=== PATIENT | male | born 1970 | race Caucasian/White ===

== ENCOUNTER → 2017-10-18 | Outpatient (CLI) | payer MEDICAID ==
[~2017-10-18] MED LIST: FLUT16SP19 NS
[2017-10-18 09:42] LABS: PLATELET COUNT, AUTOMATED 248 K/uL (150-450)
[2017-10-18 09:55] LABS: LDL CHOLESTEROL 91 mg/dl
== END ==
LOC: LAB 09:23
PROVIDERS: ATTEND Internal Medicine
DX: G47.9 Sleep disorder, unspecified (principal); R42 Dizziness and giddiness; R53.83 Other fatigue; R51 Headache; I10 Essential (primary) hypertension
CPT/HCPCS: 36415; 81001; 82040; 82247; 82310; 82374; 82435; 82465; 82565; 82947; 83718; 84075; 84132; 84155; 84295; 84443; 84450; 84460; 84478; 84520; 85025

== ENCOUNTER → 2017-10-25 | Outpatient (CLI) | payer MEDICAID ==
--- NOTE | 2017-10-25 16:13 | RADIOLOGY IMAGING REPORT ---
FACILITY: [facility] PATIENT NAME: Bulmaro De La Rosa : 1970 MR: [id number] V: [id number] EXAM DATE: ORDERING PHYSICIAN: ADONIS NICHOLSON TECHNOLOGIST: Location: [facility] Patient: Bulmaro De La Rosa : 1970 Visit/Account:[id number] Date of Sevice: 10/25/2017 Study: CT scan of the brain without intravenous contrast. Indication: Headache Comparison study:None Technique: Multiple axial images were obtained through the brain without the use of intravenous contr ast. One of the following dose optimization techniques was utilized in the performance of this exam: Autom ated exposure control; adjustment of the mA and/or kV according to the patient's size; or use of an i terative reconstruction technique. Specific details can be referenced in the facility's radiology C T exam operational policy. The examination demonstrates no evidence of acute intracranial hemorrhage. There is no evidence of ex tra-axial collection or hydrocephalus. There is no abnormal density identified within the brain parenchyma. There is no evidence of disruption of the peripheral jacobo-white junction. The bony structures are unremarkable. IMPRESSION:Unremarkable CT scan of the brain without contrast. Report Dictated By: Clifton Cruz at 10/25/2017 4:07 PM Report E-Signed By: Clifton Cruz at 10/25/2017 4:08 PM WSN:[id number]
== END ==
LOC: CT 03:20
PROVIDERS: ATTEND Internal Medicine
DX: R51 Headache (principal); R42 Dizziness and giddiness
CPT/HCPCS: 70450

== ENCOUNTER → 2017-10-29 | Outpatient (CLI) | payer MEDICAID ==
--- NOTE | 2017-10-29 13:42 | EKG ---
FACILITY: [facility] PATIENT NAME: DILIA GRANGER : [id number] MR: [id number] V: [id number] EXAM DATE: ORDERING PHYSICIAN: ADONIS NICHOLSON TECHNOLOGIST: BARBER Test Reason : DIZZINESS Blood Pressure : / mmHG Vent. Rate : 066 BPM Atrial Rate : 066 BPM P-R Int : 182 ms QRS Dur : 100 ms QT Int : 412 ms P-R-T Axes : 049 -02 051 degrees QTc Int : 431 ms Normal sinus rhythm Normal ECG No previous ECGs available Referred By: BHARAT Confirmed By:
== END ==
LOC: RESP 13:19
PROVIDERS: ATTEND Internal Medicine
DX: Z02.9 Encounter for administrative examinations, unspecified (principal)

== ENCOUNTER → 2017-10-30 | Outpatient (CLI) | payer MEDICAID | LOC: RESP 20:26 | PROVIDERS: ATTEND Internal Medicine | DX: G47.33 Obstructive sleep apnea (adult) (pediatric) (principal); G47.61 Periodic limb movement disorder; G47.36 Sleep related hypoventilation in conditions classified elsewhere; E66.9 Obesity, unspecified ==

== ENCOUNTER → 2017-12-14 | Outpatient (CLI) | payer MEDICAID ==
[~2017-12-14] MED LIST changes: +ALBU8.5H IH; +BECL8.7A2 INH; +FLU44R INH; +MONT10TA PO
== END ==
LOC: RESP 20:51
PROVIDERS: ATTEND Internal Medicine
DX: G47.33 Obstructive sleep apnea (adult) (pediatric) (principal); G47.61 Periodic limb movement disorder; G47.36 Sleep related hypoventilation in conditions classified elsewhere